=== PATIENT | male | born 1960 | race Caucasian/White ===

== ENCOUNTER 2021-10-13 11:55 | Emergency (ER) | payer BC ==
[2021-10-13 12:22] VITALS: RESP 18
--- NOTE | 2021-10-13 13:38 | ED ---
URI HPI - General Chief Complaint: Upper Respiratory Infection Stated Complaint: Covid +, wants BAM Time Seen by Provider: 10/13/21 13:08 Source: patient, RN notes reviewed Mode of arrival: ambulatory Limitations: no limitations - History of Present Illness Initial Comments: Patient is a 61-year-old male presenting to emergency Department with complaints of some mild coughing, body aches over the past couple days. Patient states he tested positive for Covid 2 days ago, symptoms began about 1 week ago. His primary care physician recommended monoclonal antibodies. He denies any chest pain or short of breath, no abdominal pain, nausea or vomiting. He states that eating and drinking as normal. He has no further complaints. His vital signs are stable upon arrival. - Related Data Allergies Allergy/AdvReac Type Severity Reaction Status Date / Time No Known Allergies Allergy Verified 10/13/21 12:21 Review of Systems ROS Statement: Those systems with pertinent positive or pertinent negative responses have been documented in the HPI. ROS Other: All systems not noted in ROS Statement are negative. Past Medical History Past Medical History: No Reported History History of Any Multi-Drug Resistant Organisms: None Reported Past Surgical History: No Surgical Hx Reported Past Psychological History: No Psychological Hx Reported Smoking Status: Never smoker Past Alcohol Use History: Occasional Past Drug Use History: None Reported General Exam - General Exam Comments Initial Comments: GENERAL: Patient is well-developed and well-nourished. Patient is nontoxic and in no acute distress. HEAD: Atraumatic, normocephalic. EYES: Pupils equal round and reactive to light, extraocular movements intact, sclera anicteric, conjunctiva are normal. Eyelids were unremarkable. ENT: Moist mucous membranes. NECK: Normal range of motion, supple without lymphadenopathy or JVD. LUNGS: Unlabored respirations. Breath sounds clear to auscultation bilaterally and equal. No wheezes rales or rhonchi. HEART: Regular rate and rhythm without murmurs, rubs or gallops. ABDOMEN: Soft, nontender, normoactive bowel sounds. MUSCULOSKELETAL: Normal extremities with adequate strength and normal range of motion, no pitting or edema. No clubbing or cyanosis. NEUROLOGICAL: Patient is alert and oriented x 3. SKIN: Warm, Dry, normal turgor, no rashes or lesions noted. Limitations: no limitations Course Vital Signs 10/13/21 12:17 Temperature 97.6 F Pulse Rate 80 Respiratory 18 Rate Blood Pressure 108/69 O2 Sat by Pulse 97 Oximetry Medical Decision Making - Medical Decision Making Patient is 61-year-old male here for monoclonal antibodies. He tested positive for Covid 2 days ago, symptoms began about 1 week ago. Symptoms seem to be mild, his vital signs are stable, exam is unremarkable. Patient did receive monoclonal antibodies, he had no over side effects. He'll be stable for discharge. He can follow up with his primary care as needed. Return parameters were discussed with him and he verbalized understanding. Case discussed Dr. Rm. Disposition Clinical Impression: COVID-19 Disposition: HOME SELF-CARE Condition: Stable Instructions (If sedation given, give patient instructions): Coronavirus Disease 2019 (COVID-19) Additional Instructions: Please return to the Emergency Department if symptoms worsen or any other concerns. May take Tylenol and/or Motrin for any fever or body aches. Follow-up with your primary care as needed. Is patient prescribed a controlled substance at d/c from ED?: No Referrals: Hoang Peters MD [Primary Care Provider] - 1-2 days
[2021-10-13] MEDS ORDERED: BAMLANIVIMAB (EUA) 700 MG, ETESEVIMAB (EUA) 1,400 MG in SODIUM CHLORIDE 0.9% 50 ML IVPB ONE (13:45)
[2021-10-13] MEDS ORDERED: SODIUM CHLORIDE 0.9% 50 ML IVPB ONE (13:45)
[2021-10-13 14:44] VITALS: BP 110/78; PULSE 75; TEMP 97.9
== END 2021-10-13 15:20 | disposition home or self-care (01) ==
LOC: EC 11:55
DX: U07.1 COVID-19 (principal); Z72.89 Other problems related to lifestyle
CPT/HCPCS: 99283; 96365; J3490